=== PATIENT | male | born 1955 | race Caucasian/White ===

== ENCOUNTER → 2017-07-07 | Outpatient (CLI) | payer BC ==
[~2017-07-07] MED LIST: ACETAMINOPHEN325 M1 PO; ATORVASTATIN CA40 MG PO; AZITHROMYCIN 2250 MG PO; COUGH DROPS; COUMADIN 2.5MG2.5 M1 PO; COUMADIN 5 MG TA5 M1 PO; COUMADIN6 MG PO; ENOXAPARIN100 MG/11 SUBQ; ENOXAPARIN80 MG/0.1 SUBQ; IBUPROFEN 200200 M1 PO; LEVAQUIN 500 M500 MG PO; MIRALAX17 GM PO; MOTRIN; MUCINEX; NOHOMEMEDICATIONS; NORCO 5-325 TA1 EACH PO; PEPCID20 MG PO; PERCOCET PO; PREDNISONE 10 M10 M1; PREDNISONE 10 M10 MG PO; SENOKOT-S1 TA1 PO; SPIRIVA INH; SUDAFED; VENTOLIN HFA 1818 GM INH
== END ==
LOC: M.RAD 10:36
DX: R06.02 Shortness of breath (principal)

== ENCOUNTER 2017-08-22 06:18 | Observation (INO) | payer BC ==
[~2017-08-22] VITALS: Ht 182.9 cm; Wt 87.1 kg
[~2017-08-22 06:18] MED LIST changes: -ATORVASTATIN CA40 MG PO; -COUMADIN6 MG PO
[2017-08-22 06:33] VITALS: BP 172/86
[2017-08-22 06:40] LABS: ABSOLUTE EOSINOPHILS 0.1 thou/uL (0.0-0.7); ABSOLUTE LYMPHOCYTES 1.6 thou/uL (0.8-5.3); ABSOLUTE MONOCYTES 0.5 thou/uL (0.0-1.2); ABSOLUTE NEUTROPHILS 3.6 thou/uL (1.6-8.1); BASOPHILS 0.9 %; EOSINOPHILS 2.3 %; HEMATOCRIT 41.2 % (42.0-52.0); HEMOGLOBIN 13.8 gm/dL (14.0-18.0); LYMPHOCYTES 26.9 %; MCH 28.9 pg (26.0-34.0); MCHC 33.4 g/dL (28.0-37.0); MCV 86.4 fL (80.0-100.0); MPV 7.2 fl. (7.2-11.1); NUCLEATED RBCS 0 /100WBC; PLATELET COUNT* 250 thou/uL (150-400); POLYS 61.9 %; RBC 4.76 mil/uL (4.50-6.00); RDW-CV 16.5 % (10.5-14.5); WBC 5.8 thou/uL (4.0-11.0)
[2017-08-22 06:47] LABS: POC CA IONIZED 4.6 mg/dL (4.5-5.3); POC HEMOGLOBIN 14.6 g/dL (12.0-17.0); POC POTASSIUM 4.2 mmol/L (3.5-4.9)
[2017-08-22 06:47] LABS: ANION GAP 6 mmol/L (7-16); BUN 15 mg/dL (7-18); CALCIUM 8.5 mg/dL (8.5-10.1); CHLORIDE 107 mmol/L (98-107); CO2 26 mmol/L (21-32); CREATININE 1.1 mg/dL (0.6-1.3); GLUCOSE 141 mg/dL (70-99); POTASSIUM 4.2 mmol/L (3.5-5.1); SODIUM 139 mmol/L (136-145)
[2017-08-22 06:49] LABS: INR 2.8; PROTIME 26.8 Seconds (9.20-11.50)
[2017-08-22] MEDS ORDERED: COUMADIN6 MG PO (06:51)
[2017-08-22 06:54] LABS: ALBUMIN 3.4 g/dL (3.4-5.0); ALKALINE PHOSPHATASE 90 U/L (46-116); SGOT 17 U/L (15-37); SGPT 23 U/L (30-65); TOTAL BILIRUBIN 0.3 mg/dL (<0.1-1.0); TOTAL PROTEIN 7.1 g/dL (6.4-8.2); TROPONIN-I LEVEL <0.06 ng/mL (<0.06)
--- NOTE | 2017-08-22 11:44 | EKG ---
[place] [address] ELECTROCARDIOGRAM REPORT Name: RAJNI WATTERS Room: [place] [address] ADM IN M.R.#: [id number] Admission: 08/22/17 Attend Phys: Dong Johns, Discharge: Date of : 57 Report #: [id number] THIS REPORT FOR: //name// [facility] ED Test Date: 2017-08-22 Test Time: 07:11:48 Pat Name: RAJNI WATTERS Department: Room: [facility] Gender: M Brand Strategy Manager: : 1955 Requested By: Hillary Richmond Order Number: [id number] MD: Nino Restrepo Measurements Intervals [place] Rate: 58 P: 26 UT: 204 QRS: 37 QRSD: 99 T: 32 QT: 410 QTc: 403 Interpretive Statements Sinus bradycardia Compared to ECG 01/02/2014 10:57:15 rate slowed Electronically Signed On 08-22-2017 11:44:41 CDT by Nino Restrepo [email or web address] <ELECTRONICALLY SIGNED> By: Nino Restrepo MD, [facility] 08/22/17 1144 0 0 Nino Restrepo MD, FACC /EPI
[2017-08-22 13:49] LABS: URINE BILIRUBIN NEGATIVE (Negative); URINE BLOOD TRACE (Negative); URINE CLARITY CLEAR; URINE COLOR YELLOW; URINE GLUCOSE-RANDOM NEGATIVE (Negative); URINE KETONES NEGATIVE (Negative); URINE LEUKOCYTES-REFLEX NEGATIVE (Negative); URINE NITRITE-REFLEX NEGATIVE (Negative); URINE PROTEIN NEGATIVE (Negative); URINE SPECIFIC GRAVITY 1.015 (1.005-1.030); URINE UROBILINOGEN 0.2 E.U./dl (0.2-1.0)
--- NOTE | 2017-08-22 14:29 | 2DMMODE ---
[place] [address] 2 D/M-MODE ECHOCARDIOGRAM Name: RAJNI WATTERS Room: [place] [address] [facility]#: [id number] Admission: 08/22/17 Attend Phys: Dong Villela Discharge: Date of : 57 Date of Service: 08/22/17 1429 Report #: [id number] THIS REPORT FOR: //name// APPROVED REPORT Study performed: 08/22/2017 11:37:55 EXAM: Comprehensive 2D, Doppler, and color-flow Echocardiogram Patient Location: In-Patient Room #: er Status: routine BSA: 2.10 HR: 52 bpm BP: 129/73 mmHg Rhythm: NSR Other Information Study Quality: Good Indications CVA/TIA Echo Enhancing Agent Indication: Rule out Shunt Agent(s) / Amount(s) Used: Agitated Saline 10 cc 2D Dimensions LVEF(%): 68.62 (>50%) IVSd: 12.69 (7-11mm) LVOT Diam: 20.76 (18-24mm) LVDd: 51.47 mm PWd: 10.77 (7-11mm) Ascending Ao: 37.32 (22-36mm) LVDs: 31.59 (25-40mm) Aortic Root: 40.94 mm Lynne's LVEF: 68.62 % Volumes Left Atrial Volume (Systole) LA ESV Index: 26.90 mL/m2 Aortic Valve AoV Peak Edil.: 1.44 m/s AO Peak Gr.: 8.25 mmHg LVOT Max P.37 mmHg AO Mean Gr.: 4.45 mmHg LVOT Mean P.91 mmHg LVOT Max V: 1.16 m/s AO V2 VTI: 27.36 cm LVOT Mean V: 0.61 m/[place] [address] 2 D/M-MODE ECHOCARDIOGRAM Name: RAJNI WATTERS Room: [address] IN .R.#: [id number] Admission: 08/22/17 Attend Phys: Dong V[place]la Discharge: Date of : 57 Date of Service: 08/22/17 1429 Report #: [id number] SEBAS (VTI): 2.84 cm2 LVOT V1 VTI: 22.95 cm Mitral Valve E/A Ratio: 1.41 MV Decel. Time: 236.20 ms MV E Max Edil.: 0.69 m/s MV PHT: 68.50 ms MVA (PHT): 3.21 cm2 TDI E/Lateral E': 5.75 E/Medial E': 6.90 Medial E' Edil.: 0.10 m/s Lateral E' Edil.: 0.12 m/s Pulmonary Valve PV Peak Edil.: 0.88 m/s PV Peak Gr.: 3.10 mmHg Left Ventricle The left ventricle is normal size. There is normal LV segmental wall motion. There is normal left ventricular wall thickness. Left ventricular systolic function is normal. The left ventricular ejection fraction is within the normal range. LVEF is 60-65%. The left ventricular diastolic function is normal. Right Ventricle Right ventricle is dilated. The right ventricular systolic function is normal. Atria The left atrium size is normal. Interatrial septum is intact without evidence of ASD or PFO. Right atrium is dilated. Aortic Valve The aortic valve is normal in structure. No aortic regurgitation is present. There is no aortic valvular stenosis. Mitral Valve The mitral valve is normal in structure. Trace mitral regurgitation. No evidence of mitral valve stenosis. Tricuspid Valve The tricuspid valve is normal in structure. Unable to assess PA pressure. Trace tricuspid regurgitation. Pulmonic Valve The pulmonary valve is normal in [place] [address] 2 D/M-MODE ECHOCARDIOGRAM Name: RAJNI WATTERS Room: [address] IN M.R.#: [id number] Admission: 08/22/17 Attend Phys: Dong [place]la Discharge: Date of : 57 Date of Service: 08/22/17 1429 Report #: [id number] regurgitation. Great Vessels The aortic root is normal in size. IVC is normal in size and collapses with >50% inspiration Pericardium There is no pericardial effusion. <Conclusion> LVEF is 60-65%. Interatrial septum is intact without evidence of ASD or PFO. <ELECTRONICALLY SIGNED> By: Nino Restrepo MD, [facility] 08/22/17 1429 1429 1429 Nino Restrepo MD, FACC /INF
[2017-08-22 14:30] VITALS: BP 139/76
[2017-08-22 14:55] VITALS: BP 139/76
[2017-08-22 15:16] VITALS: BP 135/70
[2017-08-22 16:17] VITALS: BP 129/69
[2017-08-22 20:24] VITALS: BP 126/71
[2017-08-23] VITALS: BP 103/60
[2017-08-23 04:00] VITALS: BP 123/71
[2017-08-23 05:45] LABS: HEMATOCRIT 40.9 % (42.0-52.0); HEMOGLOBIN 13.4 gm/dL (14.0-18.0); MCH 28.5 pg (26.0-34.0); MCHC 32.6 g/dL (28.0-37.0); MCV 87.3 fL (80.0-100.0); MPV 7.5 fl. (7.2-11.1); RBC 4.69 mil/uL (4.50-6.00); RDW-CV 16.8 % (10.5-14.5); WBC 6.4 thou/uL (4.0-11.0)
[2017-08-23 05:53] LABS: INR 2.7; PROTIME 25.7 Seconds (9.20-11.50)
[2017-08-23 05:55] LABS: BUN 16 mg/dL (7-18); CALCIUM 8.6 mg/dL (8.5-10.1); CHOLESTEROL 330 mg/dL (<200); CO2 26 mmol/L (21-32); CREATININE 1.2 mg/dL (0.6-1.3); GLUCOSE 119 mg/dL (70-99); HDL CHOLESTEROL 29 mg/dL (>40); MAGNESIUM 1.9 mg/dL (1.8-2.4); TC:HDL 11.4 Ratio (Not establshd); TRIGLYCERIDE 744 mg/dL (<150); VLDL 149 mg/dL (<40)
[2017-08-23 06:32] LABS: ANION GAP 7 mmol/L (7-16); CHLORIDE 107 mmol/L (98-107); POTASSIUM 4.4 mmol/L (3.5-5.1); SERUM ASSESSMENT Slight Lipemia; SODIUM 140 mmol/L (136-145)
[2017-08-23 07:30] VITALS: BP 129/79
[2017-08-23 11:36] VITALS: BP 104/62
[2017-08-23 11:57] VITALS: BP 104/62
[2017-08-23] MEDS ORDERED: ATORVASTATIN CA40 MG PO (12:08)
--- NOTE | 2017-09-02 17:26 | CON ---
[address] [address] CONSULTATION Name: RAJNI WATTERS Room: [address] ELDON Burks#: [id number] Admission: 08/22/17 Attend Phys: Dong Johns, Discharge: 08/23/17 Date of : 57 Report #: [id number] THIS REPORT FOR: //name// CC: Tereza Johns DATE OF SERVICE: 08/22/2017 HISTORY OF PRESENT ILLNESS: This is a 62-year-old male patient who was evaluated by me for dizziness. The patient indicated that he woke up with dizziness. He was also somewhat unstable on walking. He thinks all his symptoms have improved. He never lost consciousness. He feels back to the baseline. REVIEW OF SYSTEMS: A 14-point review of system was carried out. He does have a history of DVT. He is on anticoagulation. He was fully anticoagulated when I saw this patient as his protime as INR was 2.8. He stopped anticoagulation one time and he was told that his thrombus came back and he needed to be on anticoagulation for rest of the life. He had some nausea. He never had much weakness. He never had any headache with it. REVIEW OF SYSTEMS: Indicate that he had the above described episode. He had back troubles in the past. He had trouble with pulmonary embolus. He had a prior history of renal carcinoma. That was his relevant 14-point review of system is PAST MEDICAL HISTORY: Positive for pulmonary embolus. FAMILY HISTORY: Unremarkable. SOCIAL HISTORY: He does smoke. PHYSICAL EXAMINATION: Indicate that he is alert, responsive. He can follow simple commands. His speech, concentration, fund of knowledge and memory is at his baseline. Cranial nerve examination 2-12 was unremarkable. He has symmetrical strength, sensation, reflexes and tone in all 4 extremities. There is no meningeal sign. There is no thyroid mass. There is no carotid bruit. There is no evidence of vascular insufficiency. There is no edema, cyanosis or jaundice. He is a very well developed individual who does not have any dysmorphic features of eyes, ears and face. His vision, hearing, looks adequate. His blood pressure is 129/69, pulse is 56, temperature is 98.5. His blood pressure has fluctuated. He had a pretty extensive testing done. He had a CT angio, MRI of the brain, MRA of the head and neck. [place] [address] CONSULTATION Name: RAJNI WATTERS Room: [address] Fredy Burks#: [id number] Admission: 08/22/17 Attend Phys: Dong Johns, Discharge: 08/23/17 Date of : 57 Report #: [id number] IMPRESSION AND PLAN: It is unlikely that there is any neurological etiology for the patient's symptoms. I think he should be worked up for any systemic etiology for his symptoms including ENT, cardiac and other systemic etiology and I will defer that evaluation and management to you. I did put a consult with PT and asked them to see today and see if they can ambulate him and see if he is better in that regard. I will suggest checking a TSH and I added that to the lipid profile for tomorrow. Otherwise, I do not have anything specific to add and as mentioned above, I do not believe there is any neurological etiology for the patient's symptoms and if he does okay with the physical therapy, it is unlikely that there is any neurological etiology for the patient's symptoms and the focus should be evaluating and managing him for any systemic etiologies which I will defer to you. Thank you very much for this referral and if you have any questions, please feel free to contact me. Otherwise, neurologically I have limited thing to add. <ELECTRONICALLY SIGNED> By: Marc Pollack MD 09/02/17 1726 1859 1954Pcarolyne Pollack MD /nt
== END 2017-08-23 12:37 | disposition home or self-care (01) ==
LOC: M.ERS 06:18 → M.TBA-ER 08:34 → M.2W 08:34
PROVIDERS: Emergency Medicine; Emergency Medicine Emergency Medical Services; ADMIT Family Medicine
DX: R42 Dizziness and giddiness (principal); I10 Essential (primary) hypertension; M51.36 Other intervertebral disc degeneration, lumbar region; E78.5 Hyperlipidemia, unspecified; J44.9 Chronic obstructive pulmonary disease, unspecified; F17.210 Nicotine dependence, cigarettes, uncomplicated; Z86.718 Personal history of other venous thrombosis and embolism; Z95.828 Presence of other vascular implants and grafts; Z86.711 Personal history of pulmonary embolism; Z85.528 Personal history of other malignant neoplasm of kidney

== ENCOUNTER → 2019-08-02 | Outpatient (CLI) | payer BC ==
[~2019-08-02] VITALS: Ht 182.9 cm; Wt 91.2 kg
[~2019-08-02] MED LIST changes: +ATORVASTATIN CA40 MG PO; +COUMADIN 1MG TAB1 M1 PO; +COUMADIN6 MG PO; +ENOXAPARIN80 MG/0.8 SUBQ; +LIVALO2 MG PO; +LORTAB 5/325 PO
[2019-08-02 08:43] VITALS: BP 137/74
[2019-08-02 08:46] VITALS: BP 137/74
[2019-08-02 08:46] LABS: PROTIME 10.1 Seconds (9.20-11.50)
[2019-08-02 13:00] VITALS: BP 131/78
[2019-08-02 13:14] VITALS: BP 131/78
[2019-08-02 13:30] VITALS: BP 131/78
== END | disposition home or self-care (01) ==
LOC: M.INT 07:57 → EDSTATUS 09:00
PROVIDERS: Radiology Diagnostic Radiology
DX: R31.9 Hematuria, unspecified (principal); N20.0 Calculus of kidney; E78.00 Pure hypercholesterolemia, unspecified; J44.9 Chronic obstructive pulmonary disease, unspecified; F17.210 Nicotine dependence, cigarettes, uncomplicated; Z98.890 Other specified postprocedural states; Z79.899 Other long term (current) drug therapy; Z87.442 Personal history of urinary calculi; Z90.49 Acquired absence of other specified parts of digestive tract; Z85.528 Personal history of other malignant neoplasm of kidney; Z88.8 Allergy status to other drugs, medicaments and biological substances; Z79.01 Long term (current) use of anticoagulants

== ENCOUNTER 2019-08-03 08:00 | Inpatient (IN) | payer BC ==
[~2019-08-03] VITALS: Ht 182.9 cm; Wt 91.2 kg
[2019-08-03 15:30] VITALS: BP 120/70
--- NOTE | 2019-08-03 18:54 | NUR ---
PT ARRIVED TO ROOM 105 FROM PACU . pT IS ALERT ORIENT X4. DENIES PAIN UPON ARRIVAL. KOEHLER TO D/D. ELVIRA KOEHLER FROM LT FLANK. BOTH DRAINING CLEAR YELLOW URINE. PT TOLERATED REGULAR DIET WELL. NEW ORDER FOR D51/2 NS 20 KCL@ 80CC/HR VIS LT FA IV. PT ORIENTED TO UNIT ROUTINES.RESTING QUIETLY WITH CALL LIGHT IN REACH. BED LOW AND LOCKED. WILL CONTINUE TO MONITOR.
[2019-08-03 21:30] VITALS: BP 109/64
[2019-08-04 00:14] VITALS: BP 116/62
[2019-08-04 03:15] LABS: HEMATOCRIT 38.1 % (42.0-52.0); HEMOGLOBIN 12.9 gm/dL (14.0-18.0); MCH 30.4 pg (26.0-34.0); MCHC 33.8 g/dL (28.0-37.0); MPV 6.9 fl. (7.2-11.1); RBC 4.23 mil/uL (4.50-6.00); RDW-CV 15.8 % (10.5-14.5); WBC 10.6 thou/uL (4.0-11.0)
[2019-08-04 03:23] LABS: CALCIUM 8.5 mg/dL (8.5-10.1); CREATININE 1.1 mg/dL (0.6-1.3); POTASSIUM 4.8 mmol/L (3.5-5.1)
[2019-08-04 04:00] VITALS: BP 128/71
--- NOTE | 2019-08-04 05:40 | NUR ---
PATIENT RESTED ALL EVENING. DID REPORT SOME PAIN LAST DOSE 0452 WAS ABLE TO SLEEP WELL AFTER MORPHINE GIVEN. STILL ON 2L - O2, RECEIVED ALL FLUIDS AND MEDS SCHEDULED. PLAN IS FOR FURTHER OBSERVATION. WILL CONTINUE TO FOLLOW PLAN OF CARE.
[2019-08-04 08:10] VITALS: BP 116/68
[2019-08-04 12:00] VITALS: BP 148/60
[2019-08-04 16:00] VITALS: BP 146/76
--- NOTE | 2019-08-04 16:08 | NUR ---
CM COMPLETED INITIAL ASSESSMENT. PT PLAN IS TO RTRN HOME. PT HAS NO HX W/SNF OR HH. PT HAS A WALKER AT HOME. PT IS EMPLOYEED, ACTIVE AND INDEPENDENT W/ADLS. PT LIVES AT HOME W/SPOUSE. PT STATES AND CHILDREN ARE IS SUPPORTIVE NETWORK. CM TO CONT TO FOLLOW.
--- NOTE | 2019-08-04 17:39 | NUR ---
PT A&Ox4. VITALS STABLE. DRESSING C/D/I. KOEHLER OUT. PT URINATED. UP AD PHUONG. DENIED NAUSEA. PAIN LEVELS HIGH, STATING 9-02/25. MORPHINE AND PERCOCET GIVEN, MINIMAL RELIEF. DR TOWNSEND NOTIFIED. CALL LIGHT WITHIN REACH. WILL CONTINUE TO MONITOR.
[2019-08-04 20:38] VITALS: BP 106/66
[2019-08-05] VITALS: BP 170/86
--- NOTE | 2019-08-05 04:56 | NUR ---
PATIENT REPORTED A SUDDEN INCREASE IN PAIN RATED 10/10 AROUND 2100. HE HAD RECEIVED MORPHINE 2 MG AND OXYCODONE AND HYCOSAMINE. WITH NO PAIN RELIEF FROM THOSE I CALLED AND DR KATHY VERDUGO RETURNED MY CALL. HE ORDERED A CT OF ABD/PELVIS AND MORPHINE Q1 NEEDED. LAST DOSE TAKEN 2157. CT SCAN WAS NEGATIVE OF ANY HEMATOMA, OBSTRUCION. HAS NOT HAD A SIGNIFICANT BM IN 4 DAYS. ENCOURAGED TO GET UP AND WALK IN ROOM. HE WAS ABLE TO FALL ASLEEP SHORTLY AFTER 10 PM. FLUIDS ON ALL SHIFT AND HE RECEIVED SCHEDULED ABX. PAIN SEEMED TO BE MANAGED ALL SHIFT AFTER THIS. THE NEPHRO TUBE SITE DRESSING IS STILL INTACT. HE WAS ABLE TO GET UP TO RESTROOM ON HIS OWN. PAIN APPEARS TO BE WELL CONTROLLED AT THIS TIME. WILL CONTINUE TO FOLLOW PLAN OF CARE.
[2019-08-05 08:06] VITALS: BP 167/93
[2019-08-05 09:08] LABS: HEMOGLOBIN 13.4 gm/dL (14.0-18.0); MCH 30.4 pg (26.0-34.0); MCHC 33.4 g/dL (28.0-37.0); MCV 90.9 fL (80.0-100.0); MPV 7.2 fl. (7.2-11.1); RBC 4.4 mil/uL (4.50-6.00); RDW-CV 16.4 % (10.5-14.5); WBC 10.2 thou/uL (4.0-11.0)
[2019-08-05 09:18] LABS: CALCIUM 8.4 mg/dL (8.5-10.1); CREATININE 1.2 mg/dL (0.6-1.3); POTASSIUM 4.6 mmol/L (3.5-5.1)
[2019-08-05] MEDS ORDERED: PERCOCET 5-3251 EACH PO (14:07)
[2019-08-05 14:24] VITALS: BP 167/93
--- NOTE | 2019-08-05 16:40 | NUR ---
PT DISCHARGED TO HOME SELF CARE. ALL DISCHARGE INSTRUCTIONS REVIEWED WITH THE PT. FOLLOW UP APPOINTMENTS REVIEWED. POST SURGICAL INSTRUCTIONS REVIEWED. LT ARM IV REMOVED. LT FLANK DRESSING C/D/I. PT HAS ALL BELONGINGS. AMBULATED TO PERSON VEHICLE ACCOMPANIED BY STAFF. PT HAS ALL PRESCRIPTIONS. PT IS STABLE.
--- NOTE | 2019-08-10 10:14 | OP ---
[address] [address] OPERATIVE REPORT Name: DUONGRAJNI JUDITH Room: [address] IN M.R.#: [id number] Admission: 08/04/19 Attend Phys: Rivera Yancey MD Discharge: 08/05/19 Date of : 57 Report #: [id number] THIS REPORT FOR: //name// cc: Tereza Negron MD, Katrina MD ~ THIS REPORT FOR: //name// CC: Rivera Negron DATE OF SERVICE: 08/03/2019 PREOPERATIVE DIAGNOSIS: Left nephrolithiasis. POSTOPERATIVE DIAGNOSIS: Left nephrolithiasis. PROCEDURE PERFORMED: Percutaneous nephrolithotomy. SURGEON: Rivera Yancey MD [place]ARDWO[place] SAWYER: None. ANESTHESIA: General. ESTIMATED BLOOD LOSS: 20 mL. COMPLICATIONS: None. INDICATION FOR PROCEDURE: This is a 64-year-old gentleman with a known approximately 12-15 mm left renal stone. His options for management have been discussed in detail, and he has elected to proceed with left percutaneous nephrolithotomy. The risks, benefits, and possible complications were explained in detail to both he and his . They were reviewed in the preoperative area. They include but are not limited to bleeding, infection, damage to surrounding organs such as along the kidney, ureter, bowel, both large and small intestines, spleen, and pancreas; the need for secondary procedures; inability to completely treat the stone; complication from general anesthesia; and the possible need for blood transfusion. The patient and his had a chance to ask questions which were answered to their satisfaction and he elects to proceed. DESCRIPTION OF PROCEDURE: After obtaining informed consent and the patient had previously had a left nephrostomy tube placed by Interventional Radiology yesterday, he was taken to the operating room and placed in the supine position. After adequate general anesthesia and IV antibiotics, he was prepped and draped in the prone position, taking care to pad all bony prominences. He was secured to the table, and he was prepped and draped in the standard [place] [address] OPERATIVE REPORT Name: RAJNI WATTERS Room: [address] IN ..#: [id number] Admission: 08/04/19 Attend Phys: Rivera Yancey MD Discharge: 08/05/19 Date of : 57 Report #: [id number] Super Stiff guidewire was passed in the antegrade fashion through the previously placed nephrostomy tube which was actually nephroureteral stent. It was placed in the bladder under fluoroscopic guidance. The nephroureteral stent was removed and a dual lumen access sheath was passed over the wire into the renal pelvis, and antegrade nephrostogram was performed through the second port which revealed a large filling defect in the renal pelvis consistent with the patient's known stone. There was no identification of any significant extravasation other than around the tube itself. A second wire was placed as a safety wire and the balloon dilator was used to dilate the tract and an access sheath was placed over the balloon. The balloon was removed and the nephroscope was introduced into the renal pelvis where the large stone was easily identified. It was attempted to be grasped and removed as one piece. However, it was too large to be extracted through the sheath, so the ultrasonic lithotripter was used to fragment it into several smaller stones which were then easily grasped with a retractable grasper and removed atraumatically through the access sheath. Once all the pieces had been removed, a flexible cystoscope was introduced into the renal pelvis and all the calices were inspected. There was no evidence of any residual stone fragments. UPJ was intact with minimal trauma and so it was determined that a stent would not be placed. A 16-[place] tip catheter was advanced over one of the wires into the renal pelvis under fluoroscopic guidance. Approximately 3-4 mL of sterile water was placed in the balloon. All the wires were removed under fluoroscopy and antegrade was performed through the catheter at the end of the case to confirm appropriate placement. There was a normal appearing renal pelvis. The filling defect was no longer visible and contrast was seen to track distally down through the proximal ureter towards the bladder. There was no significant extravasation other than some mild tracking along the nephrostomy tube. The tube was sutured in place with 0 Prolene and placed to dependent drainage. Sterile dressing was applied. The patient was extubated and taken to recovery room in good condition. All sponge, needle and instrument counts were done and correct at the end of the case. PLAN: Plan is to admit overnight for observation and have Interventional Radiology perform an antegrade nephrostogram and remove the nephrostomy tube if his urine is clear and his ureter is patent. <ELECTRONICALLY SIGNED> By: Rivera Yancey MD 08/10/19 1014 1418 1440Rivera Yancey MD /nt
== END 2019-08-05 16:00 | disposition home or self-care (01) | DRG 661 ==
LOC: M.PRE 08:00 → M.TBA 10:24 → M.PRE 11:50 → M.ORTHSURG 15:16
PROVIDERS: Nurse Practitioner Adult Health; ADMIT Urology
PROC: BT1D1ZZ Fluoroscopy of Right Kidney, Ureter and Bladder using Low Osmolar Contrast (ICD-10-PCS; principal; 2019-08-03)
PROC: 0TC13ZZ Extirpation of Matter from Left Kidney, Percutaneous Approach (ICD-10-PCS; principal; 2019-08-03)
DX: N20.0 Calculus of kidney (principal); I10 Essential (primary) hypertension; K59.00 Constipation, unspecified; Z88.8 Allergy status to other drugs, medicaments and biological substances; Z79.01 Long term (current) use of anticoagulants; Z79.899 Other long term (current) drug therapy; Z86.718 Personal history of other venous thrombosis and embolism; Z95.828 Presence of other vascular implants and grafts; Z98.1 Arthrodesis status

== ENCOUNTER → 2021-05-25 | Outpatient (CLI) | payer BC ==
[~2021-05-25] MED LIST changes: +JANTOVEN6 MG PO; +LOVENOX40 MG/0.4 SUBQ; +PERCOCET 5-3251 EACH PO
== END ==
LOC: M.LAB 15:57
PROVIDERS: ATTEND Surgery
DX: Z01.812 Encounter for preprocedural laboratory examination (principal); Z20.822 Contact with and (suspected) exposure to COVID-19

== ENCOUNTER 2021-05-28 07:53 | Inpatient (IN) | payer BC ==
[2021-05-28] VITALS (10 sets, daily range): BP systolic 119–158; BP diastolic 65–88
[~2021-05-28] VITALS: Ht 182.9 cm; Wt 88.5 kg
--- NOTE | 2021-05-28 08:17 | NUR ---
SEE CODE STEMI SHEET
[2021-05-28 08:21] LABS: ABSOLUTE BASOPHILS 0.1 thou/uL (0.0-0.2); ABSOLUTE EOSINOPHILS 0.1 thou/uL (0.0-0.7); ABSOLUTE LYMPHOCYTES 1.3 thou/uL (0.8-5.3); ABSOLUTE MONOCYTES 0.6 thou/uL (0.0-1.2); ABSOLUTE NEUTROPHILS 5.6 thou/uL (1.6-8.1); BASOPHILS 0.7 %; EOSINOPHILS 1.1 %; HEMATOCRIT 46.1 % (42.0-52.0); HEMOGLOBIN 15.1 gm/dL (14.0-18.0); LYMPHOCYTES 17.1 %; MCH 29.5 pg (26.0-34.0); MCHC 32.8 g/dL (28.0-37.0); MCV 90.1 fL (80.0-100.0); MONOCYTES 7.7 %; NUCLEATED RBCS 0 /100WBC; PLATELET COUNT* 253 thou/uL (150-400); POLYS 73.4 %; RBC 5.11 mil/uL (4.50-6.00); RDW-CV 15.5 % (10.5-14.5); WBC 7.6 thou/uL (4.0-11.0)
[2021-05-28 08:37] LABS: CALCIUM 8.8 mg/dL (8.5-10.1); CREATININE 1.1 mg/dL (0.6-1.3); POTASSIUM 4.4 mmol/L (3.5-5.1)
[2021-05-28 08:44] LABS: ALBUMIN 3.5 g/dL (3.4-5.0); CK-MB MASS 2.9 ng/mL (<0.5-3.6); MAGNESIUM 2.1 mg/dL (1.8-2.4); TOTAL BILIRUBIN 0.3 mg/dL (<0.1-1.0); TOTAL PROTEIN 7.7 g/dL (6.4-8.2)
[2021-05-28 08:54] LABS: APTT 29.1 Seconds (25.0-31.3); PROTIME 10.1 Seconds (9.20-11.50)
--- NOTE | 2021-05-28 13:09 | CARD ---
[address] [address] CARDIAC CATH REPORT Name: RAJNI WATTERS Room: [place] [address] ADM IN .R.#: [id number] Admission: 05/28/21 Attend Phys: Naun Aponte MD Discharge: Date of : 57 Report #: [id number] THIS REPORT FOR: cc: Mariposa Donis Linda J. DO Holkins, John M. MD [facility] ~ APPROVED REPORT Study performed: 05/28/2021 08:20:42 Patient Details Patient Status: ED Room #: The patient is a 65 year-old male Event Personnel Abdullahi Conde Respite Care Provider, Naun Aponte Tempering Machine Operator, Rachelle Jones RN RN, Joyce Del Toro Scrub, Caitlin Goel RTR Monitor, Vanessa Brown, KRYSTAL Monitor Procedures Performed Left Heart Catheterization, Coronary Angiography and Percutaneous Coronary Intervention Indication STEMI (>0 to less than or equal to 6 hours) Risk Factors Hypercholesterolemia, Tobacco History () Admission/Lab Medications/Medications given during procedure 0.9% Sodium Chloride IV 75 ml/hr, Angiomax 16.5 ml IVP, Angiomax drip 31 ml/hr, Lidocaine 14 ml, Oxygen 2 L/min Procedure Narrative The patient was brought electively to the Cardiac Catheterization Laboratory and was prepped and draped in a sterile manner. The right femoral was infiltrated with 2% Lidocaine subcutaneous anesthesia. IV conscious sedation was used throughout procedure with appropriate monitoring and was performed in the presence of a registered nurse who was an independent trained observer other than the physician performing the procedure. A 6 Fr Everett sheath was inserted into the right femoral artery. Coronary angiography was performed using coronary diagnostic catheters. The right coronary system was accessed and visualized with a diagnostic 6 Fr JR 4 [place] [address] CARDIAC CATH REPORT Name: RAJNI WATTERS Room: [address] IN [facility].#: [id number] Admission: 05/28/21 Attend Phys: Naun Aponte MD Discharge: Date of : 57 Report #: [id number] coronary system was accessed and visualized with a diagnostic 6 Fr JL 4 catheter. The left ventricle was accessed and visualized with a diagnostic 6 Fr pigtail catheter. Left ventricular/Aortic Valve gradient assessed via catheter pullback. Left ventriculogram was performed in REYNOSO projection. Closure device was deployed with a 6 Fr Angioseal. The patient tolerated the procedure well and there were no complications associated with the procedure. There was no hematoma. Intraoperative Conscious Sedation Sedation start time: 843 Case end Time: 925 Fentanyl 50.0 mcg Versed 2.0 mg Fluoro Time: 6.8 minutes Dose: DAP 2669.3 cGycm2 313.1 mGy Contrast Type and Amount: 190 ml Visipaque Coronary Angiography The patient's coronary anatomy is right dominant. Diagnostic Cath Left Main 0% narrowing LAD 30% proximal LAD narrowing Circumflex 30% narrowing in the proximal portion of the nondominant circumflex Right Coronary Dominant vessel with 95 % mid vessel occlusion and MAURICE I flow beyond the stenosis Left Ventriculography The left ventricle is normal in size with Mildly decreased contractility. The left ventricular ejection fraction is estimated to be 50%. Left ventricular wall motion abnormalities are present. There is no mitral insufficiency. Mild inferior hypokinesis is noted Hemodynamics The aortic pressure is 160/68 mmHg with a mean of 41 mmHg. The left ventricular pressure is 157/11 mmHg with a mean of mmHg. The left ventricular end diastolic pressure is 20 mmHg. There was no gradient across the aortic valve upon pullback. PCI Technique Lesion Anticoagulation was achieved with Angiomax. Patient was preloaded with Angiomax 13 ml. Percutaneous [place] [address] CARDIAC CATH REPORT Name: RAJNI WATTERS Room: [address]#: [id number] Admission: 05/28/21 Attend Phys: Naun Aponte MD Discharge: Date of : 57 Report #: [id number] on the mid right coronary artery. The lesion stenosis prior to intervention was 95% with MAURICE 1 flow. A 6 Fr JR 4.0 Guide Catheter was used to engage the ostium. A BMW 190 cm Interventional Guidewire was used to cross the lesion. BALLOON DILATION A Balloon catheter Mini Trek RX 2.0 X 12 mm was inserted and inflated up to 8atm for 5seconds. Additional Inflation: 12atm for 7seconds. Additional Inflation: 17atm for 9seconds. STENT DEPLOYMENT A drug-eluting stent Standard RX 2.75 X 15 mm was inserted and inflated up to 16atm for 6seconds. Additional Inflation: 18atm for 5seconds. Additional Inflation: 18atm for 6seconds. POST STENT DEPLOYMENT BALLOON DILATION A Balloon catheter NC Trek RX 3.0 X 12mm was inserted and inflated up to 14atm for 8seconds. Additional Inflation: 16atm for 9seconds. Final angiography reveals 10 % stenosis with MAURICE 3 flow. Conclusion 1. Acute inferior wall STEMI 2. Significant coronary artery disease characterized by the following: A 95% mid right coronary stenosis with local thrombus at the site and MAURICE I flow beyond the stenosis B 30% proximal LAD narrowing C 30% proximal circumflex narrowing 3. Moderate elevation of left end-diastolic pressure at rest 4. Mild decrease in global LV function, estimated ejection fraction being 50% with mild inferior hypokinesis 5. Successful PCI with deployment of drug-eluting stent at the site of 95% mid right coronary stenosis with 10% residual narrowing and MAURICE-3 [place] [address] CARDIAC CATH REPORT Name: RAJNI WATTERS Room: [address] IN M.R.#: [id number] Admission: 05/28/21 Attend Phys: Naun Aponte MD Discharge: Date of : 57 Report #: [id number] Recommendations Smoking Cessation Aggressive Medical Therapy Medications Administered Aspirin (any) Prasugrel Diagnostic Cath Approved by: Naun Aponte MD Date/Time: 05/28/2021 13:07:02 <ELECTRONICALLY SIGNED> By: Abdullahi Conde MD, FAC 05/28/21 1309 1309 1309Jomariel Conde MD, FAC /INF
--- NOTE | 2021-05-28 13:21 | EKG ---
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: TARYN : 1955 Requested By: Laurent Cortés Order Number: [id number] MD: Abdullahi Conde Measurements Intervals [place] Rate: 61 P: 47 MI: 192 QRS: 63 QRSD: 97 T: 84 QT: 405 QTc: 408 Interpretive Statements Sinus rhythm Inferoposterior infarct, acute (RCA) Probable RV involvement, suggest recording right precordial leads Compared to ECG 08/22/2017 07:11:48 Myocardial infarct finding now present Sinus bradycardia no longer present Electronically Signed On 05-28-2021 13:20:46 ENGINEERING FACULTY MEMBER by Abdullahi Conde [email or web address] <ELECTRONICALLY SIGNED> By: Abdullahi Conde MD, FACC 05/28/21 1320 0759 0759 Abdullahi Conde MD, FAC /EPI
--- NOTE | 2021-05-28 13:22 | EKG ---
[place] [address] ELECTROCARDIOGRAM REPORT Name: DUONGRAJNI Room: [place] [address] ADM IN M.R.#: [id number] Admission: 05/28/21 Attend Phys: Naun Aponte, Discharge: Date of : 57 Date of Service: 05/28/21 1231 Report #: [id number] THIS REPORT FOR: //name// [facility] Test Date: 2021-05-28 Test Time: 12:31:23 Pat Name: RAJNI WATTERS Department: Room: [facility] Gender: M Heater Operator: ALEC : 1955 Requested By: Naun Aponte Order Number: [id number] Uche CARTER: Abdullahi Conde Measurements Intervals [place] Rate: 55 P: 60 ND: 218 QRS: 44 QRSD: 101 T: 36 QT: 412 QTc: 394 Interpretive Statements Sinus rhythm Borderline prolonged ND interval Compared to ECG 05/28/2021 07:59:44 Myocardial infarct finding no longer present Electronically Signed On 05-28-2021 13:22:26 BUCKLE SEWER MACHINE by Abdullahi Conde [email or web address] <ELECTRONICALLY SIGNED> By: Abdullahi Conde MD, [facility] 05/28/21 1322 1231 1231 Abdullahi Conde MD, [facility] /EPI
--- NOTE | 2021-05-28 21:24 | NUR ---
ASSUMED PT CARE AT 1900. PT VOICES NO COMPLAINTS. STATES HE WANTS TO GO HOME TOMORROW. CARDIAC MONITORING SINUS ROMULO. UP AD PHUONG. CALL LIGHT WITHIN REACH WILL CONTINUE TO MONITOR.
[2021-05-29] VITALS: BP 138/65
[2021-05-29 04:00] VITALS: BP 108/53
[2021-05-29 05:13] LABS: HEMATOCRIT 42.8 % (42.0-52.0); HEMOGLOBIN 14.1 gm/dL (14.0-18.0); MCH 29.5 pg (26.0-34.0); MCHC 32.9 g/dL (28.0-37.0); MCV 89.7 fL (80.0-100.0); MPV 7.2 fl. (7.2-11.1); RBC 4.77 mil/uL (4.50-6.00); WBC 7.1 thou/uL (4.0-11.0)
[2021-05-29 05:28] LABS: ANION GAP 7 mmol/L (7-16); BUN 18 mg/dL (7-18); CALCIUM 8.5 mg/dL (8.5-10.1); CHLORIDE 106 mmol/L (98-107); CO2 26 mmol/L (21-32); CREATININE 1.2 mg/dL (0.6-1.3); GLUCOSE 107 mg/dL (70-99); POTASSIUM 4.9 mmol/L (3.5-5.1); SODIUM 139 mmol/L (136-145)
[2021-05-29 05:33] LABS: ALBUMIN 3.1 g/dL (3.4-5.0); ALKALINE PHOSPHATASE 84 U/L (46-116); CHOLESTEROL 246 mg/dL (<200); HDL CHOLESTEROL 32 mg/dL (>40); SGOT 67 U/L (15-37); SGPT 74 U/L (30-65); TC:HDL 7.7 Ratio (Not establshd); TOTAL BILIRUBIN 0.4 mg/dL (<0.1-1.0); TOTAL PROTEIN 6.5 g/dL (6.4-8.2); TRIGLYCERIDE 425 mg/dL (<150); VLDL 85 mg/dL (<40)
[2021-05-29 05:41] LABS: LDL CHOLESTEROL ND mg/dL (<100)
[2021-05-29 05:43] LABS: SERUM ASSESSMENT Clear
--- NOTE | 2021-05-29 06:58 | NUR ---
PT SLEPT WELL THROUGHOUT THE NIGHT. RT GROIN DRESSING C/D/I, AREA IS SORE/TENDER TO TOUCH. PT VOICES NO COMPLAINTS AND IS UP WALKING THE UNIT THIS AM. CARDIAC TRACING SINUS RHYTHM.
[2021-05-29 09:00] VITALS: BP 99/72
--- NOTE | 2021-05-29 10:05 | EKG ---
[place] [address] ELECTROCARDIOGRAM REPORT Name: HELENEJUNARAJNI Room: [address] ADM IN M.R.#: [id number] Admission: 05/28/21 Attend Phys: Naun Aponte, Discharge: Date of : 57 Date of Service: 05/29/2101 Report #: [id number] THIS REPORT FOR: //name// [facility] Test Date: 2021-05-29 Test Time: 06:01:24 Pat Name: RAJNI WATTERS Department: Room: [facility] Gender: M Developer [employer]: JUDE : 1955 Requested By: Naun Aponte Order Number: [id number] MD: Abdullahi Conde Measurements Intervals [place] Rate: 57 P: 54 MS: 201 QRS: 4 QRSD: 98 T: -25 QT: 438 QTc: 427 Interpretive Statements Sinus rhythm Nonspecific T abnormalities, inferior leads compatible with ischemia or injury Baseline wander in lead(s) V1 Compared to ECG 05/28/2021 12:31:[address]-T abnormality suggesting ischemia or injury are noted Electronically Signed On 05-29-2021 10:05:10 [employer] MECH[employer]ICIAN by Abdullahi Conde [email or web address] <ELECTRONICALLY SIGNED> By: Abdullahi Conde MD, FACC 05/29/21 1005 0601 0601 Abdullahi Conde MD, FAC /EPI
[2021-05-29 10:40] VITALS: BP 108/53
[2021-05-29] MEDS ORDERED: EFFIENT10 MG PO (12:05)
[2021-05-29] MEDS ORDERED: NITROGLYCERIN0.4 MG SUBLING (12:05)
[2021-05-29] MEDS ORDERED: ZETIA10 MG PO (12:06)
--- NOTE | 2021-05-29 12:11 | NUR ---
CM ASSESSMENT: PT A&O, INDEPENDENT WITH ADL'S, AND ACTIVE. PT RESIDES AT HOME WITH SPOUSE. PT USES 0 DME. PT HAS 0 HX OF HH OR SNF. NO CM D/C PLANNING NEEDS ANTICIPATED. CM WILL REMAIN AVAILABLE TO ASSIST AND FOLLOW NEEDED.
[2021-05-29 12:46] VITALS: BP 124/64
[2021-05-29 13:21] VITALS: BP 124/64
--- NOTE | 2021-05-29 13:41 | NUR ---
ASSSUMED PT CARE AT 0730. PT IS A&O X4, CONVERSATIONAL AND PLEASANT. ASSESSMENT COMPLETED AND DRESSING TO R GROIN IS DRY AND INTACT. SLIGHTLY TENDER WITH NO HEMATOMA NOTED. MEDICATIONS ADMINISTERED ORDERED. ORDERS TO DISCHARGE PT. ORDERS REVIEWED WITH PT AND SPOUSE. IV DC'D AND HEART MONITOR REMOVED. ALL BELONGINGS WITH PT. PT TRANSPORTED BY NURSING STAFF VIA WC WITH SPOUSE AT APPROX [phone].
--- NOTE | 2021-05-31 08:33 | D ---
[address] [address] DISCHARGE SUMMARY Name: RAJNI WATTERS Room: [address] IN M.R.#: [id number] Admission: 05/28/21 Attend Phys: Naun Aponte MD Discharge: 05/29/21 Date of : 57 Report #: [id number] THIS REPORT FOR: cc: Mariposa Donis Linda J. DO Liston, Michael J. MD [facility] ~ cc: Mariposa Donis DO DATE OF DISCHARGE: 05/29/2021 DISCHARGE DIAGNOSES: 1. Acute inferior wall ST elevation myocardial infarction. 2. Acute diastolic heart failure. 3. Hyperlipidemia. 4. History of recurrent deep venous thrombosis. 5. Chronic anticoagulation. PROCEDURES DURING HOSPITALIZATION: 1. Left heart catheterization. 2. Coronary angiography. 3. Percutaneous coronary intervention to critical mid right coronary artery occlusion. HOSPITAL COURSE: The patient presented to the Emergency Room with complaints of midsternal chest pain on 05/28/2021. Initial EKG showed ST elevation in the inferior leads consistent with ST elevation myocardial infarction. The patient was taken to the cardiac catheterization lab emergently and found to have an occluded right coronary artery. The patient underwent percutaneous coronary intervention with drug-eluting stent placement without complication. The patient tolerated the procedure well. Left heart catheterization revealed left ventricular end diastolic pressure elevated at 20 mmHg consistent with acute diastolic heart failure. On left ventriculogram, the patient had an ejection fraction approximately 40-45% with inferior wall hypokinesis. At the completion of the procedure, the artery was sealed using an Angio-Seal. The patient was then discharged to the floor, on Angiomax. The patient tolerated the procedure well without complication. The following day, the groin incision site appeared stable. He was discharged uneventfully. DISCHARGE MEDICATIONS: 1. Xarelto 20 mg daily. 2. Eliquis 10 mg daily. 3. Pitavastatin 2 mg 4 times weekly. 4. Aspirin [address] [place] [address] DISCHARGE SUMMARY Name: RAJNI WATTERS Room: [address]#: [id number] Admission: 05/28/21 Attend Phys: Naun Aponte MD Discharge: 05/29/21 Date of : 57 Report #: [id number] DISPOSITION: The patient is to follow up with Cardiology in 2 weeks. <ELECTRONICALLY SIGNED> By: Naun Aponte MD, FACC 05/31/21 0833 0835 0845[place] Jonathan Aponte MD, FACC /nt
== END 2021-05-29 13:46 | disposition home or self-care (01) | DRG 246 ==
LOC: M.ERS 07:53 → M.TBA-CV 09:31 → M.2W 09:31 → M.TBA-ER 09:31 → M.TBA-CV 09:32 → M.2W 14:24
PROVIDERS: Family Medicine; Registered Nurse; ADMIT Internal Medicine Cardiovascular Disease; ATTEND Internal Medicine Cardiovascular Disease
DX: I21.19 ST elevation (STEMI) myocardial infarction involving other coronary artery of inferior wall (principal); I50.31 Acute diastolic (congestive) heart failure; J44.9 Chronic obstructive pulmonary disease, unspecified; E78.00 Pure hypercholesterolemia, unspecified; F17.210 Nicotine dependence, cigarettes, uncomplicated; E78.5 Hyperlipidemia, unspecified; Z79.01 Long term (current) use of anticoagulants; Z90.49 Acquired absence of other specified parts of digestive tract; Z87.442 Personal history of urinary calculi; Z85.528 Personal history of other malignant neoplasm of kidney; Z86.718 Personal history of other venous thrombosis and embolism; Z88.8 Allergy status to other drugs, medicaments and biological substances; Z71.6 Tobacco abuse counseling; Z93.6 Other artificial openings of urinary tract status